=== PATIENT | male | born 1950 | race Caucasian/White ===

== ENCOUNTER → 2017-01-15 | Outpatient (CLI) | payer OTHER ==
[~2017-01-15] MED LIST: ASPI-496 PO; FLEC150T PO; LORA1TAB PO; METO-99 PO; METO50TA82 PO; MULT-516 PO; NAPR-758 PO; NAPR500T3 PO; OMEP20CA9 PO; RIVA20TA PO; SILD100T PO; SOTA120T26 PO; TIOT18CA INH
[2017-01-15 15:44] LABS: HEMOGLOBIN 15.2 g/dL (13.7-18.0)
[2017-01-15 15:52] LABS: BLOOD UREA NITROGEN 11 mg/dL (7-18)
[2017-01-15 15:56] LABS: ASPARTATE AMINO TRANSFERASE 16 U/L (15-37)
== END | disposition home or self-care (01) ==
LOC: STAR 14:33
PROVIDERS: ATTEND Urology
DX: Z01.818 Encounter for other preprocedural examination (principal); C61 Malignant neoplasm of prostate; R94.31 Abnormal electrocardiogram [ECG] [EKG]
CPT/HCPCS: 36415; 80053; 81003; 85025; 87086; 93005

== ENCOUNTER 2021-01-28 13:47 | Observation (INO) | payer OTHER ==
[~2021-01-28] VITALS: Ht 193 cm; Wt 92.6 kg
[~2021-01-28 13:47] MED LIST changes: +NAPR-685 PO; -NAPR500T3 PO
[2021-01-28] MEDS ORDERED: FENTANYL PF 250 MCG/5ML ONE (14:29)
[2021-01-28] MEDS ORDERED: PLEASE ENTER HEIGHT AND WEIGHT MC SCH (14:30)
[2021-01-28] MEDS ORDERED: SODIUM CHLORIDE 0.9% 1,000 ML IV SCH (14:30)
[2021-01-28] MEDS ORDERED: GABA100C PO (14:36)
[2021-01-28] MEDS ORDERED: AMLO-211 PO (14:36)
[2021-01-28] MEDS ORDERED: PRED20TA PO ×2 (14:36→14:45)
[2021-01-28] MEDS ORDERED: HYDR25TA6 PO (14:36)
[2021-01-28] MEDS ORDERED: FLUT1AER INH (14:36)
[2021-01-28] MEDS ORDERED: LISI5TAB7 PO (14:37)
[2021-01-28] MEDS ORDERED: SERT50TA28 PO (14:37)
[2021-01-28] MEDS ORDERED: METO-93 PO (14:37)
[2021-01-28] MEDS ORDERED: POTA10TA5 PO (14:37)
[2021-01-28] MEDS ORDERED: MAGN500T PO (14:37)
[2021-01-28 14:48] LABS: BASOPHILS % (AUTO) 0 % (0-1); EOSINOPHILS % (AUTO) 0 % (1-7); LYMPHOCYTES % (AUTO) 9 % (22-44); MEAN CORPUSCULAR HEMOGLOBIN 32.1 pg (27.5-34.5); MEAN CORPUSCULAR HGB CONC 33.4 g/dL (33.2-36.2); MONOCYTES % (AUTO) 3 % (2-9); NEUTROPHILS % (AUTO) 88 % (42-75); PLATELET COUNT 427 x10^3/uL (130-400); RED CELL DISTRIBUTION WIDTH 14.6 % (9.4-14.8)
[2021-01-28 14:52] VITALS: BP 136/86
[2021-01-28 14:53] LABS: ANION GAP 11 mmol/L (5-15); CALCIUM 7.2 mg/dL (8.5-10.1); CHLORIDE 103 mmol/L (98-107); CREATININE 0.78 mg/dL (0.7-1.3); INTERNATIONAL NORMALIZED RATIO 1.23 (0.93-1.1)
[2021-01-28] MEDS ORDERED: ONDANSETRON 2MG/ML, 2ML ONE (14:55)
[2021-01-28] MEDS ORDERED: PROPOFOL 10 MG/ML, 20ML ONE (14:55)
[2021-01-28] MEDS ORDERED: ROCURONIUM 10 MG/ML,10ML ONE (14:55)
[2021-01-28] MEDS ORDERED: DEXAMETHASONE 4 MG/ML, 1ML ONE (14:55)
[2021-01-28] MEDS ORDERED: METO25TA2 PO (14:56)
[2021-01-28] MEDS ORDERED: LORazepam 1MG TABLET PO SCH (17:00)
[2021-01-28] MEDS ORDERED: EPHEDRINE 50 MG/ML, 1ML IVPush PRN (17:30)
[2021-01-28] MEDS ORDERED: DIAZEPAM 5 MG/ML, 2ML IVPush PRN (17:30)
[2021-01-28] MEDS ORDERED: PROMETHAZINE 25 MG/ML, 1ML IVPush PRN (17:30)
[2021-01-28] MEDS ORDERED: HYDROmorphone 1 MG/ML, 1ML INJ IVPush PRN (17:30)
[2021-01-28] MEDS ORDERED: MEPERIDINE/PF 25MG/0.5ML IVPush PRN (17:30)
[2021-01-28] MEDS ORDERED: FENTANYL PF 100 MCG/2ML IV PRN (17:30)
[2021-01-28] MEDS ORDERED: MIDAZOLAM 1 MG/ML, 2ML IV PRN (17:30)
[2021-01-28] MEDS ORDERED: OXYcodone 5 MG/5 ML ORAL.SOL UDC PO PRN (17:30)
[2021-01-28] MEDS ORDERED: ONDANSETRON 2MG/ML, 2ML IVPush PRN (17:30)
[2021-01-28] MEDS ORDERED: LABETALOL 5MG/ML, 20ML IV PRN (17:30)
[2021-01-28] MEDS ORDERED: ALBUTEROL SULFATE 2.5 MG/3 ML NPPB PRN (17:30)
[2021-01-28] MEDS ORDERED: PROMETHAZINE 12.5 MG SUPP PR PRN (17:30)
[2021-01-28] MEDS ORDERED: hydrALAzine 20 MG/ML, 1ML IV PRN (17:30)
[2021-01-28] MEDS ORDERED: DIPHENHYDRAMINE 50 MG/ML, 1ML IVPush PRN ×2 (17:30)
[2021-01-28] MEDS ORDERED: RIVAROXABAN 20 MG TABLET PO SCH (18:00)
[2021-01-28 18:10] VITALS: BP 109/70
[2021-01-28 20:08] VITALS: BP 107/68
[2021-01-28] MEDS ORDERED: MELATONIN 3 MG TABLET PO PRN (21:00)
[2021-01-29 04:45] VITALS: BP 118/75
[2021-01-29] MEDS ORDERED: SERTRALINE 50MG TABLET PO SCH (09:00)
[2021-01-29] MEDS ORDERED: AMLODIPINE 10 MG TAB PO SCH (09:00)
[2021-01-29] MEDS ORDERED: POTASSIUM CHLORIDE 10 MEQ TABLET.ER PO SCH (09:00)
[2021-01-29] MEDS ORDERED: HYDROCHLOROTHIAZIDE 25 MG TABLET PO SCH (09:00)
[2021-01-29] MEDS ORDERED: RIVAROXABAN 20 MG TABLET PO SCH (09:00)
[2021-01-29] MEDS ORDERED: LISINOPRIL 5 MG TABLET PO SCH (09:00)
[2021-01-29] MEDS ORDERED: GABAPENTIN 100 MG CAPSULE PO SCH (09:00)
[2021-01-29] MEDS ORDERED: TIOTROPIUM BROMIDE 18 MCG/INH INH SCH (09:00)
[2021-01-29] MEDS ORDERED: METOPROLOL SUCCINATE 100 MG TAB.ER.24H PO SCH (09:00)
[2021-01-29 09:31] VITALS: BP 114/74
== END 2021-01-29 11:40 | disposition home or self-care (01) ==
LOC: CACL 13:47 → ORIP 16:54 → 5SO 18:05
PROVIDERS: ADMIT Internal Medicine Cardiovascular Disease; ATTEND Internal Medicine Cardiovascular Disease
DX: I48.3 Typical atrial flutter (principal); I48.0 Paroxysmal atrial fibrillation; I36.1 Nonrheumatic tricuspid (valve) insufficiency; I10 Essential (primary) hypertension; D68.69 Other thrombophilia; E78.5 Hyperlipidemia, unspecified; E78.2 Mixed hyperlipidemia; M10.9 Gout, unspecified; J44.9 Chronic obstructive pulmonary disease, unspecified; G47.33 Obstructive sleep apnea (adult) (pediatric); Z79.01 Long term (current) use of anticoagulants; Z86.718 Personal history of other venous thrombosis and embolism; Z87.891 Personal history of nicotine dependence; Z79.899 Other long term (current) drug therapy
CPT/HCPCS: 36415; 71046; 80048; 85025; 85610; 93005; 93613; 93653; 93662; C1730; C1732; C1766; C1894; C2630; G0378; J1100; J2405; J2704; J3010; J7512